=== PATIENT | female | born 1950 | race African-American/Black ===

== ENCOUNTER 2022-02-12 19:41 | Emergency (ER) | payer MEDICARE, OTHER ==
[~2022-02-12] VITALS: Ht 167.6 cm; Wt 68.0 kg
[2022-02-12] MEDS ORDERED: NAPROSYN500 MG PO (20:20)
[2022-02-12] MEDS ORDERED: METHOCARBAMOL750 MG PO (20:20)
== END 2022-02-12 20:24 | disposition home or self-care (01) ==
LOC: ER 19:52
DX: M54.2 Cervicalgia (principal); I10 Essential (primary) hypertension; E11.9 Type 2 diabetes mellitus without complications; E78.5 Hyperlipidemia, unspecified; F17.210 Nicotine dependence, cigarettes, uncomplicated
CPT/HCPCS: 99282